=== PATIENT | female | born 1985 | race Caucasian/White ===

== ENCOUNTER 2018-04-16 13:52 | Emergency (ER) | END 2018-04-16 15:19 | disposition home or self-care (01) ==

== ENCOUNTER 2018-04-19 11:02 | Emergency (ER) | END 2018-04-19 13:52 | disposition home or self-care (01) ==

== ENCOUNTER 2018-04-26 07:26 | Emergency (ER) | END 2018-04-26 07:54 | disposition home or self-care (01) ==

== ENCOUNTER 2018-04-29 12:33 | Emergency (ER) | END 2018-04-29 15:40 | disposition home or self-care (01) ==

== ENCOUNTER 2018-06-04 19:51 | Emergency (ER) | END 2018-06-04 20:55 | disposition home or self-care (01) ==